=== PATIENT | female | born 1935 | race Caucasian/White ===

== ENCOUNTER 2016-11-05 09:33 | Outpatient (CLI) | payer MEDICARE, MEDICAID | END 2016-11-05 09:34 | disposition home or self-care (01) | DX: M85.88 Other specified disorders of bone density and structure, other site (principal) ==

== ENCOUNTER 2017-06-09 16:23 | Outpatient (CLI) | payer MEDICARE, MEDICAID | END 2017-06-09 16:24 | disposition EMS.NT | LOC: EMS 16:23 | PROVIDERS: ATTEND Surgery | DX: M25.562 Pain in left knee (principal); W18.39XA Other fall on same level, initial encounter; Y92.030 Kitchen in apartment as the place of occurrence of the external cause ==

== ENCOUNTER 2019-11-02 09:56 | Outpatient (CLI) | payer MEDICARE, MEDICAID ==
--- NOTE | 2019-11-02 13:22 | XRAY Report ---
Reason: SHOULDER PAIN Procedure Date: 11/02/2019 Accession Number: [id number] / [id number] Procedure: XRN - Shoulder 3 View LT CPT Code: Final Report FULL RESULT: EXAM: LEFT SHOULDER RADIOGRAPHY EXAM DATE: 11/02/2019 10:56 AM. CLINICAL HISTORY: Shoulder pain. COMPARISON: CHEST 2 VIEW 11/02/2019 10:48 AM. TECHNIQUE: 3 views. FINDINGS: Bones: Normal. No fracture or bone lesion. Joints: The glenohumeral joint is normally located with marked degenerative changes including osteophytosis and loss of joint space. There are soft tissue calcifications in the region of the rotator cuff. The acromioclavicular joint is not well seen. Soft tissues: The visualized hemithorax is unremarkable. No soft tissue swelling. IMPRESSION: Degenerative changes without acute fracture or dislocation, moderate to severe. Calcifications in the region of the rotator cuff, possible calcific tendinitis. RADIA
--- NOTE | 2019-11-02 13:24 | XRAY Report ---
Reason: dyspnea on exertion Procedure Date: 11/02/2019 Accession Number: [id number] / [id number] Procedure: XRN - Chest 2 View X-Ray CPT Code: 03806 Final Report FULL RESULT: EXAM: CHEST RADIOGRAPHY EXAM DATE: 11/02/2019 10:56 AM. CLINICAL HISTORY: Dyspnea on exertion. COMPARISON: RIBS W/PA CHEST LT 03/12/2014 10:02 AM. TECHNIQUE: 2 views. FINDINGS: Examination is underpenetrated, limitation. Lungs/Pleura: No focal opacities evident. No pleural effusion. No pneumothorax. Normal volumes. Mediastinum: Cardiomediastinal contour is not enlarged, redemonstration of calcifications of the aortic arch. Other: None. IMPRESSION: No acute cardiopulmonary abnormality is detected. RADIA
== END 2019-11-02 09:57 | disposition home or self-care (01) ==
LOC: DI.N 09:56
PROVIDERS: ATTEND Family Medicine
DX: M19.012 Primary osteoarthritis, left shoulder (principal); M25.812 Other specified joint disorders, left shoulder; R06.09 Other forms of dyspnea
CPT/HCPCS: 71046

== ENCOUNTER → 2019-11-02 | Outpatient (CLI) | payer MEDICARE, MEDICAID ==
[2019-11-02 12:05] LABS: HGB - HEMOGLOBIN 13.9 g/dL (12.0-16.0); MEAN CORPUSCULAR HEMOGLOBIN 30.5 pg (27.0-31.0); MEAN CORPUSCULAR HGB CONC 33.4 g/dL (32.0-36.0); MEAN CORPUSCULAR VOLUME 91.2 fL (81.0-99.0); MEAN PLATELET VOLUME 10.4 fL (7.9-10.8); RED BLOOD COUNT 4.56 10^6/uL (4.20-5.40); RED CELL DISTRIBUTION WIDTH 12.4 % (12.0-15.0); WHITE BLOOD COUNT 5.6 x10^3/uL (4.8-10.8)
[2019-11-02 12:20] LABS: CALCIUM 8.6 mg/dL (8.5-10.3); CREATININE 0.9 mg/dL (0.4-1.0)
== END ==
LOC: LAB.N 08:00
PROVIDERS: ATTEND Family Medicine
DX: R06.09 Other forms of dyspnea (principal)
CPT/HCPCS: 36415; 80048; 83880; 85027

== ENCOUNTER 2019-11-29 08:54 | Outpatient (CLI) | payer MEDICARE, MEDICAID ==
[2019-11-29] MEDS ORDERED: ALBUTEROL NEB 2.5 MG/3 ML INH SCH (09:30)
== END 2019-11-29 08:55 | disposition home or self-care (01) ==
LOC: RT 08:54
PROVIDERS: ATTEND Family Medicine
DX: J44.9 Chronic obstructive pulmonary disease, unspecified (principal)
CPT/HCPCS: 94060; 94729

== ENCOUNTER 2020-01-01 09:38 | Outpatient (CLI) | payer MEDICARE, MEDICAID | END 2020-01-01 09:39 | disposition home or self-care (01) | LOC: DI 09:38 | PROVIDERS: ATTEND Family Medicine | DX: R06.09 Other forms of dyspnea (principal); I11.9 Hypertensive heart disease without heart failure | CPT/HCPCS: 93306 ==

== ENCOUNTER 2020-01-02 11:44 | Outpatient (CLI) | payer MEDICARE, MEDICAID ==
--- NOTE | 2020-01-02 12:59 | XRAY Report ---
Reason: WRIST JOINT PAIN,LEFT Procedure Date: 01/02/2020 Accession Number: [id number] / [id number] Procedure: XR - Wrist 3 View LT CPT Code: Final Report FULL RESULT: EXAM: LEFT WRIST RADIOGRAPHY EXAM DATE: 01/02/2020 12:02 PM. CLINICAL HISTORY: WRIST JOINT PAIN, LEFT. COMPARISON: None. TECHNIQUE: 3 views. FINDINGS: The bones are osteopenic. No acute fracture or bone lesions. No joint subluxations. Soft Tissues: Mild soft tissue swelling. IMPRESSION: 1. Osteopenia. 2. No acute fracture or dislocation. 3. Mild soft tissue swelling. RADIA
== END 2020-01-02 11:45 | disposition home or self-care (01) ==
LOC: DI 11:44
PROVIDERS: ATTEND Family Medicine
DX: M85.88 Other specified disorders of bone density and structure, other site (principal); M79.89 Other specified soft tissue disorders; M25.532 Pain in left wrist

== ENCOUNTER 2020-03-28 07:00 | Outpatient (CLI) | payer MEDICARE, MEDICAID ==
[2020-03-28 12:53] LABS: CALCIUM 8.6 mg/dL (8.5-10.3); CREATININE 1.2 mg/dL (0.4-1.0)
== END 2020-03-28 23:59 | disposition home or self-care (01) ==
LOC: LAB.WCP 07:00
PROVIDERS: ATTEND Family Medicine
DX: R60.9 Edema, unspecified (principal); R06.09 Other forms of dyspnea
CPT/HCPCS: 36415; 80048; 83880; 85027

== ENCOUNTER 2020-04-01 13:14 | Outpatient (CLI) | payer MEDICARE, MEDICAID ==
[2020-04-01 18:20] LABS: BASOPHILS % (AUTO) 0.6 %; EOSINOPHILS # (AUTO) 0.1 10^3/uL (0.0-0.7); EOSINOPHILS % (AUTO) 1.4 %; HGB - HEMOGLOBIN 14.2 g/dL (12.0-16.0); LYMPHOCYTES # (AUTO) 2.8 10^3/uL (1.5-3.5); MEAN CORPUSCULAR HEMOGLOBIN 31.6 pg (27.0-31.0); MEAN CORPUSCULAR HGB CONC 33.6 g/dL (32.0-36.0); MEAN CORPUSCULAR VOLUME 94.2 fL (81.0-99.0); MONOCYTES # (AUTO) 0.6 10^3/uL (0.0-1.0); MONOCYTES % (AUTO) 9.1 %; NEUTROPHILS % (AUTO) 45.6 %; PLT - PLATELET COUNT 267 10^3/uL (130-450); RED BLOOD COUNT 4.49 10^6/uL (4.20-5.40); RED CELL DISTRIBUTION WIDTH 12.5 % (12.0-15.0); WHITE BLOOD COUNT 6.6 x10^3/uL (4.8-10.8)
== END 2020-04-01 23:59 | disposition home or self-care (01) ==
LOC: LAB.WCP 13:14
PROVIDERS: ATTEND Family Medicine
DX: R60.9 Edema, unspecified (principal); R06.09 Other forms of dyspnea
CPT/HCPCS: 36415; 85025

== ENCOUNTER 2020-05-13 10:27 | Outpatient (CLI) | payer MEDICARE, MEDICAID ==
[2020-05-13 18:41] LABS: BASOPHILS % (AUTO) 0.7 %; EOSINOPHILS # (AUTO) 0.2 10^3/uL (0.0-0.7); EOSINOPHILS % (AUTO) 2.9 %; LYMPHOCYTES # (AUTO) 2.4 10^3/uL (1.5-3.5); LYMPHOCYTES % (AUTO) 41.4 %; MEAN CORPUSCULAR HEMOGLOBIN 31.1 pg (27.0-31.0); MEAN CORPUSCULAR HGB CONC 32.4 g/dL (32.0-36.0); MEAN PLATELET VOLUME 9.7 fL (7.9-10.8); MONOCYTES # (AUTO) 0.5 10^3/uL (0.0-1.0); MONOCYTES % (AUTO) 9.1 %; NEUTROPHILS # (AUTO) 2.7 10^3/uL (1.5-6.6); NEUTROPHILS % (AUTO) 45.6 %; PLT - PLATELET COUNT 243 10^3/uL (130-450); RED CELL DISTRIBUTION WIDTH 12.8 % (12.0-15.0); WHITE BLOOD COUNT 5.8 x10^3/uL (4.8-10.8)
[2020-05-13 18:56] LABS: CALCIUM 9.1 mg/dL (8.5-10.3)
== END 2020-05-13 23:59 | disposition home or self-care (01) ==
LOC: LAB.WCP 10:27
PROVIDERS: ATTEND Family Medicine
DX: R06.09 Other forms of dyspnea (principal)
CPT/HCPCS: 36415; 80048; 83880; 85025

== ENCOUNTER 2020-12-16 08:00 | Outpatient (CLI) | payer MEDICARE, MEDICAID ==
[2020-12-16 12:16] LABS: BASOPHILS % (AUTO) 0.7 %; EOSINOPHILS # (AUTO) 0.2 10^3/uL (0.0-0.7); EOSINOPHILS % (AUTO) 2.6 %; HCT - HEMATOCRIT 44.7 % (37.0-47.0); LYMPHOCYTES # (AUTO) 2.7 10^3/uL (1.5-3.5); LYMPHOCYTES % (AUTO) 44.8 %; MEAN CORPUSCULAR HEMOGLOBIN 31.6 pg (27.0-31.0); MEAN CORPUSCULAR HGB CONC 33.6 g/dL (32.0-36.0); MEAN CORPUSCULAR VOLUME 94.1 fL (81.0-99.0); MEAN PLATELET VOLUME 9.9 fL (7.9-10.8); MONOCYTES # (AUTO) 0.5 10^3/uL (0.0-1.0); MONOCYTES % (AUTO) 8.9 %; NEUTROPHILS # (AUTO) 2.6 10^3/uL (1.5-6.6); NEUTROPHILS % (AUTO) 42.7 %; PLT - PLATELET COUNT 256 10^3/uL (130-450); RED BLOOD COUNT 4.75 10^6/uL (4.20-5.40); WHITE BLOOD COUNT 6.1 x10^3/uL (4.8-10.8)
[2020-12-16 12:35] LABS: ALBUMIN 4.2 g/dL (3.2-5.5); ALBUMIN/GLOBULIN RATIO 1.2 (1.0-2.2); ALKALINE PHOSPHATASE 86 IU/L (42-121); ALT ALANINE AMINOTRANSFERASE 15 IU/L (10-60); AST ASPARTATE AMINOTRANSFERASE 20 IU/L (10-42); BILIRUBIN,TOTAL 0.6 mg/dL (0.2-1.0); BUN - BLOOD UREA NITROGEN 27 mg/dL (6-20); CARBON DIOXIDE - CO2 22 mmol/L (21-32); CHLORIDE 104 mmol/L (101-111); CHOL/HDL RATIO 3.6 (<4.4); CHOLESTEROL 234 mg/dL; CREATININE 1.1 mg/dL (0.4-1.0); GFR - MDRD 47 (>89); GLUCOSE 129 mg/dL (70-100); HDL CHOLESTEROL 65 mg/dL; LDL CHOLESTEROL,CALCULATED 144 mg/dL; LDL/HDL RATIO 2.2 (<4.4); POTASSIUM 4.4 mmol/L (3.5-5.0); SODIUM 135 mmol/L (135-145); TOTAL PROTEIN 7.6 g/dL (6.7-8.2); TRIGLYCERIDES 124 mg/dL; VLDL CHOLESTEROL 25 mg/dL
[2020-12-16 12:38] LABS: THYROID STIMULATING HORMONE 8.54 uIU/mL (0.34-5.60)
[2020-12-16 13:12] LABS: FREE T4 (FREE THYROXINE) 0.83 ng/dL (0.58-1.64)
== END 2020-12-16 23:59 | disposition home or self-care (01) ==
LOC: LAB.WCP 08:00
PROVIDERS: ATTEND Family Medicine
DX: E87.6 Hypokalemia (principal); I10 Essential (primary) hypertension
CPT/HCPCS: 36415; 80053; 80061; 83721; 84439; 84443; 85025

== ENCOUNTER 2021-02-27 13:01 | Outpatient (CLI) | payer MEDICARE, MEDICAID ==
--- NOTE | 2021-02-27 15:40 | XRAY Report ---
PROCEDURE: Knee 4 View BILAT INDICATIONS: BILATERAL KNEE PAIN TECHNIQUE: 4 views of the right and left knee(s) were acquired. COMPARISON: None. FINDINGS: Bones: No fractures or dislocations. There is severe left, and moderate to severe right medial hanna rtment joint space loss. There is near bone on bone in the left knee. Moderate marginal spurs are pre sent, left slightly larger than right. Mild patellofemoral compartment spurs on the left. No suspicio us bony lesions. Decreased mineralization. Soft tissues: No joint effusion. No suspicious soft tissue calcifications. IMPRESSION: Moderately severe, left worse than right, mainly medial compartment osteoarthritic change. No visible fractures or joint effusion. Reviewed by: Susan Car MD on 02/27/2021 3:39 PM PDT Approved by: Susan Car MD on 02/27/2021 3:39 PM PDT Station ID: [id number]
== END 2021-02-27 13:02 | disposition home or self-care (01) ==
LOC: DI.N 13:01
PROVIDERS: ATTEND Family Medicine
DX: M17.0 Bilateral primary osteoarthritis of knee (principal)

== ENCOUNTER 2021-07-06 08:33 | Outpatient (CLI) | payer MEDICARE, MEDICAID | END 2021-07-06 08:34 | disposition EMS.NT | LOC: EMS 08:33 | DX: Z03.89 Encounter for observation for other suspected diseases and conditions ruled out (principal) ==

== ENCOUNTER 2021-09-10 17:17 | Outpatient (CLI) | payer MEDICARE, MEDICAID | END 2021-09-10 17:18 | disposition short-term general hospital (02) | LOC: EMS 17:17 | DX: M54.9 Dorsalgia, unspecified (principal) | CPT/HCPCS: A0425; A0429 ==

== ENCOUNTER 2021-09-23 08:00 | Outpatient (CLI) | payer MEDICARE, MEDICAID ==
[2021-09-23 13:11] LABS: CALCIUM 9.2 mg/dL (8.5-10.3); POTASSIUM 4.3 mmol/L (3.5-5.0)
== END 2021-09-23 23:59 | disposition home or self-care (01) ==
LOC: LAB.WCP 08:00
PROVIDERS: ATTEND Family Medicine
DX: N28.9 Disorder of kidney and ureter, unspecified (principal)
CPT/HCPCS: 36415; 80048

== ENCOUNTER 2021-09-24 08:00 | Outpatient (CLI) | payer MEDICARE, MEDICAID ==
[2021-09-24 18:01] LABS: BASOPHILS % (AUTO) 0.4 %; EOSINOPHILS # (AUTO) 0.1 10^3/uL (0.0-0.7); EOSINOPHILS % (AUTO) 2.6 %; HCT - HEMATOCRIT 39.5 % (37.0-47.0); HGB - HEMOGLOBIN 13.2 g/dL (12.0-16.0); LYMPHOCYTES # (AUTO) 1.9 10^3/uL (1.5-3.5); LYMPHOCYTES % (AUTO) 38.1 %; MEAN CORPUSCULAR HGB CONC 33.4 g/dL (32.0-36.0); MEAN CORPUSCULAR VOLUME 95.6 fL (81.0-99.0); MEAN PLATELET VOLUME 11.2 fL (7.9-10.8); MONOCYTES # (AUTO) 0.5 10^3/uL (0.0-1.0); MONOCYTES % (AUTO) 9.3 %; NEUTROPHILS # (AUTO) 2.5 10^3/uL (1.5-6.6); NEUTROPHILS % (AUTO) 49.4 %; PLT - PLATELET COUNT 226 10^3/uL (130-450); RED BLOOD COUNT 4.13 10^6/uL (4.20-5.40); RED CELL DISTRIBUTION WIDTH 13.8 % (12.0-15.0); WHITE BLOOD COUNT 5.1 x10^3/uL (4.8-10.8)
[2021-09-24 18:18] LABS: ALBUMIN 4.5 g/dL (3.2-5.5); ALBUMIN/GLOBULIN RATIO 1.5 (1.0-2.2); ALKALINE PHOSPHATASE 77 IU/L (42-121); ALT ALANINE AMINOTRANSFERASE 10 IU/L (10-60); AST ASPARTATE AMINOTRANSFERASE 16 IU/L (10-42); BUN - BLOOD UREA NITROGEN 23 mg/dL (6-20); CALCIUM 9.4 mg/dL (8.5-10.3); CARBON DIOXIDE - CO2 25 mmol/L (21-32); CHLORIDE 100 mmol/L (101-111); CHOL/HDL RATIO 3.2 (<4.4); CHOLESTEROL 180 mg/dL; GFR - MDRD 53 (>89); GLUCOSE 113 mg/dL (70-100); HDL CHOLESTEROL 56 mg/dL; LDL CHOLESTEROL,CALCULATED 102 mg/dL; LDL/HDL RATIO 1.8 (<4.4); POTASSIUM 3.8 mmol/L (3.5-5.0); SODIUM 135 mmol/L (135-145); TOTAL PROTEIN 7.5 g/dL (6.7-8.2); TRIGLYCERIDES 111 mg/dL; VLDL CHOLESTEROL 22 mg/dL
[2021-09-24 18:30] LABS: THYROID STIMULATING HORMONE 3.71 uIU/mL (0.34-5.60)
[2021-09-24 18:32] LABS: FREE T3 2.8 pg/mL (2.5-3.9); FREE T4 (FREE THYROXINE) 0.93 ng/dL (0.58-1.64)
== END 2021-09-24 23:59 | disposition home or self-care (01) ==
LOC: LAB.WCP 08:00
PROVIDERS: ATTEND Family Medicine
DX: E66.01 Morbid (severe) obesity due to excess calories (principal); R63.4 Abnormal weight loss; E87.6 Hypokalemia; J44.9 Chronic obstructive pulmonary disease, unspecified; I10 Essential (primary) hypertension
CPT/HCPCS: 36415; 80053; 80061; 83721; 84439; 84443; 84481; 85025

== ENCOUNTER 2021-10-30 10:35 | Outpatient (CLI) | payer MEDICARE, MEDICAID ==
--- NOTE | 2021-10-30 17:15 | DEXA Report ---
PROCEDURE: Dexa Spine and/or Hip INDICATIONS: OSTEOPENIA TECHNIQUE: Dual energy x-ray absorptiometry (DXA) was performed on a [employer] System. Regions measur ed are the AP Spine, femoral neck, and if needed forearm. COMPARISON: DEXA, 11/05/2016.. FINDINGS: Lumbar Spine: Bone Mineral Density 1.023 g/cm/cm,T score -1.3 Left Hip: Bone Mineral Density 0.721 g/cm/cm,T score -2.3 Left Femoral Neck: Bone Mineral Density 0.840 g/cm/cm, T score -1.4 (T score greater or equal to -1.0: NORMAL) (T score from -1.1 to -2.4: OSTEOPENIA) (T score less than or equal to -2.5 to: OSTEOPOROSIS) Impression: Based on WHO criteria, the patient is osteopenic. Compared to the last exam on 11/05/2016 , there is significant decrease in the patient's bone mineral density in spine and left hip. Patients with diagnosis of osteoporosis or osteopenia should have regular bone mineral density assess ment. For those eligible for Medicare, routine testing is allowed once every 2 years. Testing frequ ency can be increased for patients who have rapidly progressing disease or for those who are receivin g medical therapy to restore bone mass. Reviewed by: Alexy Fowler MD on 10/30/2021 5:13 PM PST Approved by: Alexy Fowler MD on 10/30/2021 5:13 PM PST Station ID: [id number]
== END 2021-10-30 10:36 | disposition home or self-care (01) ==
LOC: DI 10:35
PROVIDERS: ATTEND Family Medicine
DX: M85.89 Other specified disorders of bone density and structure, multiple sites (principal)

== ENCOUNTER 2021-12-02 10:54 | Outpatient (CLI) | payer MEDICARE, MEDICAID ==
[2021-12-02] MEDS ORDERED: IOPAMIDOL-300 50 ML VIAL ONE (11:20)
[2021-12-02] MEDS ORDERED: IOVERSOL 320 100 ML VIAL IVP ONE ×2 (11:20→13:20)
[2021-12-02] MEDS ORDERED: IOPAMIDOL-300 50 ML VIAL PO ONE (13:19)
--- NOTE | 2021-12-02 17:24 | CT Report ---
PROCEDURE: Abdomen/Pelvis W INDICATIONS: ABDOMINAL PAIN, UNINTENTIONAL WEIGHT LOSS CONTRAST: IV CONTRAST: Optiray 320 ml: 100 PO CONTRAST: Isovue 300 ml50 TECHNIQUE: After the administration of oral and intravenous contrast, 5 mm thick sections acquired from the diap hragms to the symphysis. 5 mm thick coronal and sagittal reformats were acquired. For radiation dos e reduction, the following was used: automated exposure control, adjustment of mA and/or kV accordin g to patient size. COMPARISON: CT abdomen pelvis 05/23/2013. FINDINGS: Image quality: There is metallic streak artifact from patient's right hip prosthesis limiting evaluat ion. ABDOMEN: Lung bases: There is linear atelectasis and scarring the lung bases. Heart size is at the upper limit s of normal. There is a small hiatal hernia. Solid organs: Evaluation of the liver demonstrates no focal hepatic lesions. Gallbladder appears wit hin normal limits without calcified gallstones. Biliary system is non dilated. The spleen is normal in size. Pancreas enhances normally without peripancreatic fat stranding or fluid collections. No ad renal nodules. Kidneys demonstrate no hydronephrosis. Peritoneum and bowel: Bowel loops demonstrate normal wall thickness and caliber. No free fluid or a ir. Nodes and vessels: No retroperitoneal or mesenteric adenopathy by size criteria. Aorta and inferior vena cava are normal in size. Miscellaneous: No ventral hernias. PELVIS: Genitourinary: Bladder wall thickness is normal. Miscellaneous: No inguinal hernias or adenopathy. Bones: No suspicious bony lesions. Visualized osseous structures appear osteopenic. Multiple compre ssion fractures are demonstrated throughout the visualized lower thoracic and lumbar spine. These inc lude moderate superior endplate compression fracture of the T10 vertebral body with approximately 40% loss of height and a moderate to severe inferior endplate compression fracture of the L5 vertebral b blossom with up to approximately 60% loss of height centrally which are new compared to the prior study b ut of indeterminate acuity. No definite retropulsed fragments in the spinal canal. Compression deform ities within the T12, L1, L2, and L4 vertebral bodies appear similar to the prior study. There is als o an incompletely visualized compression deformity along the superior endplate of T9 which is new fro m the prior study. There is likely moderate to severe spinal canal narrowing at L1-L2 and L2-L3 which appear similar to the prior study. IMPRESSION: 1. No acute intra-abdominal abnormality. 2. No definite evidence of malignancy in the abdomen and pelvis with evaluation limited in the pelvis due to streak artifact. 3. Multiple compression fractures within the lower thoracic and lumbar spine including T9, T10 and L5 compression fractures which are new compared to the prior study from 2012 but of indeterminate acuit y. No definite retropulsed fragments in the spinal canal. Reviewed by: Raphael Miranda MD on 12/02/2021 5:23 PM PST Approved by: Raphael Miranda MD on 12/02/2021 5:23 PM PST Station ID: [id number]
== END 2021-12-02 10:55 | disposition home or self-care (01) ==
LOC: LAB 10:54
PROVIDERS: ATTEND Family Medicine
DX: R10.9 Unspecified abdominal pain (principal); R63.4 Abnormal weight loss; M48.54XA Collapsed vertebra, not elsewhere classified, thoracic region, initial encounter for fracture; M48.56XA Collapsed vertebra, not elsewhere classified, lumbar region, initial encounter for fracture
CPT/HCPCS: 36415; 74177; 82565; Q9967

== ENCOUNTER 2021-12-18 10:07 | Outpatient (CLI) | payer MEDICARE, MEDICAID ==
[2021-12-18 12:01] LABS: BASOPHILS % (AUTO) 0.6 %; EOSINOPHILS # (AUTO) 0.1 10^3/uL (0.0-0.7); HCT - HEMATOCRIT 39.2 % (37.0-47.0); HGB - HEMOGLOBIN 13.4 g/dL (12.0-16.0); LYMPHOCYTES # (AUTO) 2.4 10^3/uL (1.5-3.5); LYMPHOCYTES % (AUTO) 43.1 %; MEAN CORPUSCULAR HEMOGLOBIN 32.6 pg (27.0-31.0); MEAN CORPUSCULAR HGB CONC 34.2 g/dL (32.0-36.0); MEAN CORPUSCULAR VOLUME 95.4 fL (81.0-99.0); MEAN PLATELET VOLUME 10.3 fL (7.9-10.8); MONOCYTES # (AUTO) 0.4 10^3/uL (0.0-1.0); MONOCYTES % (AUTO) 7.9 %; NEUTROPHILS # (AUTO) 2.5 10^3/uL (1.5-6.6); NEUTROPHILS % (AUTO) 46.2 %; PLT - PLATELET COUNT 215 10^3/uL (130-450); RED BLOOD COUNT 4.11 10^6/uL (4.20-5.40); RED CELL DISTRIBUTION WIDTH 12.6 % (12.0-15.0); WHITE BLOOD COUNT 5.5 x10^3/uL (4.8-10.8)
[2021-12-18 12:19] LABS: CALCIUM 9.1 mg/dL (8.5-10.3); POTASSIUM 3.9 mmol/L (3.5-5.0)
[2021-12-18 12:41] LABS: ESTIMATED AVERAGE GLUCOSE 123 mg/dL (70-100); HEMOGLOBIN A1c% 5.9 % (4.27-6.07)
== END 2021-12-18 10:08 | disposition home or self-care (01) ==
LOC: LAB.N 10:07
PROVIDERS: ATTEND Orthopaedic Surgery
DX: Z01.812 Encounter for preprocedural laboratory examination (principal); R73.9 Hyperglycemia, unspecified; N39.0 Urinary tract infection, site not specified
CPT/HCPCS: 36415; 80048; 81001; 82043; 82570; 83036; 85025; 87086

== ENCOUNTER 2021-12-18 10:11 | Outpatient (CLI) | payer MEDICARE, MEDICAID ==
--- NOTE | 2021-12-18 11:32 | XRAY Report ---
PROCEDURE: Chest 2 View X-Ray INDICATIONS: WEIGHT LOSS ABNORMAL TECHNIQUE: 2 view(s) of the chest. COMPARISON: November 02, 2019 FINDINGS: SUPPORT DEVICES: None. LUNGS/PLEURA: No focal consolidation, pleural effusion or space-occupying pneumothorax. MEDIASTINUM: The cardiomediastinal silhouette is within normal limits. BONES/SOFT TISSUES: No acute abnormality. IMPRESSION: 1.No acute cardiopulmonary abnormality. Reviewed by: Thierry Chatman MD on 12/18/2021 11:31 AM PDT Approved by: Thierry Chatman MD on 12/18/2021 11:31 AM PDT Station ID: [id number]
== END 2021-12-18 10:12 | disposition home or self-care (01) ==
LOC: DI.N 10:11
PROVIDERS: ATTEND Family Medicine
DX: R63.4 Abnormal weight loss (principal); Z01.812 Encounter for preprocedural laboratory examination; R73.9 Hyperglycemia, unspecified; N39.0 Urinary tract infection, site not specified
CPT/HCPCS: 36415; 80048; 81001; 82043; 82570; 83036; 85025; 87086

== ENCOUNTER 2021-12-21 08:00 | Outpatient (CLI) | payer MEDICARE, MEDICAID ==
[2021-12-21 11:44] LABS: BILIRUBIN,URINE NEGATIVE (NEGATIVE); GLUCOSE, URINE (UA) NEGATIVE (NEGATIVE); KETONES,URINE (UA) NEGATIVE (NEGATIVE); LEUKOCYTE ESTERASE, URINE NEGATIVE (NEGATIVE); NITRITE,URINE NEGATIVE (NEGATIVE); OCCULT BLOOD,URINE NEGATIVE (NEGATIVE); PROTEIN,URINE NEGATIVE (NEGATIVE); UROBILINOGEN,URINE 0.2 (NORMAL) E.U./dL (NORMAL)
[2021-12-21 11:55] LABS: CLARITY,URINE CLEAR (CLEAR)
== END 2021-12-21 23:59 ==
LOC: LAB.N 08:00
DX: Z01.812 Encounter for preprocedural laboratory examination (principal); N39.0 Urinary tract infection, site not specified
CPT/HCPCS: 81001; 81003; 87086

== ENCOUNTER 2022-10-13 08:00 | Outpatient (CLI) | payer MEDICARE, MEDICAID ==
[2022-10-13 18:13] LABS: CREATININE 1.1 mg/dL (0.4-1.0); POTASSIUM 4.3 mmol/L (3.5-5.0)
== END 2022-10-13 23:59 | disposition home or self-care (01) ==
LOC: LAB.N 08:00
PROVIDERS: ATTEND Physician Assistant Medical
DX: R60.9 Edema, unspecified (principal)
CPT/HCPCS: 36415; 80048

== ENCOUNTER 2023-01-05 11:25 | Outpatient (CLI) | payer MEDICARE, MEDICAID ==
[2023-01-05 17:48] LABS: BASOPHILS % (AUTO) 0.7 %; EOSINOPHILS # (AUTO) 0.2 10^3/uL (0.0-0.7); EOSINOPHILS % (AUTO) 3.3 %; HCT - HEMATOCRIT 38.7 % (37.0-47.0); HGB - HEMOGLOBIN 12.7 g/dL (12.0-16.0); LYMPHOCYTES % (AUTO) 43.2 %; MEAN CORPUSCULAR HEMOGLOBIN 32.4 pg (27.0-31.0); MEAN CORPUSCULAR HGB CONC 32.8 g/dL (32.0-36.0); MEAN CORPUSCULAR VOLUME 98.7 fL (81.0-99.0); MEAN PLATELET VOLUME 10.5 fL (7.9-10.8); MONOCYTES # (AUTO) 0.4 10^3/uL (0.0-1.0); MONOCYTES % (AUTO) 9.2 %; NEUTROPHILS % (AUTO) 43.4 %; PLT - PLATELET COUNT 199 10^3/uL (130-450); RED BLOOD COUNT 3.92 10^6/uL (4.20-5.40); WHITE BLOOD COUNT 4.6 x10^3/uL (4.8-10.8)
[2023-01-05 18:08] LABS: ALBUMIN 4.1 g/dL (3.2-5.5); ALBUMIN/GLOBULIN RATIO 1.4 (1.0-2.2); ALKALINE PHOSPHATASE 60 IU/L (42-121); ALT ALANINE AMINOTRANSFERASE 14 IU/L (10-60); AST ASPARTATE AMINOTRANSFERASE 18 IU/L (10-42); BILIRUBIN,TOTAL 0.6 mg/dL (0.2-1.0); BUN - BLOOD UREA NITROGEN 47 mg/dL (6-20); CALCIUM 8.9 mg/dL (8.5-10.3); CARBON DIOXIDE - CO2 25 mmol/L (21-32); CHLORIDE 106 mmol/L (101-111); CHOL/HDL RATIO 2.4 (<4.4); CHOLESTEROL 207 mg/dL; CREATININE 1.4 mg/dL (0.4-1.0); GFR - MDRD 36 (>89); GLUCOSE 90 mg/dL (70-100); HDL CHOLESTEROL 85 mg/dL; LDL CHOLESTEROL,CALCULATED 103 mg/dL; LDL/HDL RATIO 1.2 (<4.4); POTASSIUM 4.7 mmol/L (3.5-5.0); SODIUM 137 mmol/L (135-145); TRIGLYCERIDES 97 mg/dL; VLDL CHOLESTEROL 19 mg/dL
[2023-01-05 18:45] LABS: THYROID STIMULATING HORMONE 5.22 uIU/mL (0.34-5.60)
== END 2023-01-05 11:26 | disposition home or self-care (01) ==
LOC: LAB.N 11:25
PROVIDERS: ATTEND Physician Assistant
DX: I10 Essential (primary) hypertension (principal); Z13.220 Encounter for screening for lipoid disorders
CPT/HCPCS: 36415; 80053; 80061; 83721; 84443; 85025

== ENCOUNTER 2023-04-19 23:00 | Outpatient (CLI) | payer MEDICARE, MEDICAID | END 2023-04-19 23:59 | disposition critical access hospital (66) | LOC: EMS 23:00 | DX: M54.50 Low back pain, unspecified (principal); R25.2 Cramp and spasm; Z74.09 Other reduced mobility | CPT/HCPCS: A0425; A0429 ==

== ENCOUNTER 2023-05-18 08:58 | Outpatient (CLI) | payer MEDICARE, MEDICAID ==
[2023-05-18 09:04] LABS: BASOPHILS % (AUTO) 0.7 %; EOSINOPHILS # (AUTO) 0.2 10^3/uL (0.0-0.7); EOSINOPHILS % (AUTO) 4.6 %; HCT - HEMATOCRIT 35.5 % (37.0-47.0); HGB - HEMOGLOBIN 11.8 g/dL (12.0-16.0); LYMPHOCYTES # (AUTO) 1.9 10^3/uL (1.5-3.5); LYMPHOCYTES % (AUTO) 45.4 %; MEAN CORPUSCULAR HEMOGLOBIN 31.5 pg (27.0-31.0); MEAN CORPUSCULAR HGB CONC 33.2 g/dL (32.0-36.0); MEAN CORPUSCULAR VOLUME 94.7 fL (81.0-99.0); MEAN PLATELET VOLUME 10.3 fL (7.9-10.8); MONOCYTES # (AUTO) 0.3 10^3/uL (0.0-1.0); NEUTROPHILS # (AUTO) 1.7 10^3/uL (1.5-6.6); NEUTROPHILS % (AUTO) 41.1 %; PLT - PLATELET COUNT 173 10^3/uL (130-450); RED BLOOD COUNT 3.75 10^6/uL (4.20-5.40); RED CELL DISTRIBUTION WIDTH 12.7 % (12.0-15.0); WHITE BLOOD COUNT 4.1 x10^3/uL (4.8-10.8)
[2023-05-18 09:17] LABS: CALCIUM 9.1 mg/dL (8.5-10.3); CREATININE 1.2 mg/dL (0.6-1.3); POTASSIUM 4.2 mmol/L (3.5-4.5)
== END 2023-05-18 08:59 | disposition home or self-care (01) ==
LOC: LAB 08:58
PROVIDERS: ATTEND Registered Nurse
DX: I10 Essential (primary) hypertension (principal); E87.6 Hypokalemia; J44.9 Chronic obstructive pulmonary disease, unspecified
CPT/HCPCS: 36415; 80048; 85025

== ENCOUNTER 2023-06-01 05:38 | Outpatient (CLI) | payer MEDICARE, MEDICAID | END 2023-06-01 23:59 | disposition EMS.NT | LOC: EMS 05:38 | DX: Z03.89 Encounter for observation for other suspected diseases and conditions ruled out (principal) ==

== ENCOUNTER 2023-08-20 19:24 | Outpatient (CLI) | payer MEDICARE, MEDICAID | END 2023-08-20 19:25 | disposition critical access hospital (66) | LOC: EMS 19:24 | DX: M54.40 Lumbago with sciatica, unspecified side (principal) | CPT/HCPCS: A0425; A0429 ==

== ENCOUNTER 2023-08-20 19:46 | Emergency (ER) | payer MEDICARE, MEDICAID ==
[2023-08-20 19:59] VITALS: BP 118/104; O2SAT 94
[2023-08-20] MEDS ORDERED: MORPHINE 2 MG/ML CARPUJECT IVP STA (19:59)
[2023-08-20] MEDS ORDERED: LIDOCAINE PATCH 5% TOP STA (19:59)
[2023-08-20] MEDS ORDERED: DEXAMETHASONE 10 MG/ML VIAL IVP STA (19:59)
[2023-08-20] MEDS ORDERED: methocarbamoL 500 MG TABLET PO STA (19:59)
[2023-08-20] MEDS ORDERED: KETOROLAC 15 MG/ML VIAL IVP STA (19:59)
--- NOTE | 2023-08-20 20:00 | ED Physician Documentation ---
PD HPI BACK PAIN - Stated complaint Stated Complaint: BACK PX - Chief complaint Chief Complaint: Back Pain - History obtained from History obtained from: Patient, EMS - Additional information Additional information: 88-year-old female with history of chronic lumbar back pain presents by EMS from home for lumbar back pain. Pain is diffuse across her lower back and similar to her typical pain, only more intense than normal. Patient states that her usual oxycodone is no longer working and her pain is making it difficult for her to function around the house. Denies bowel or bladder incontinence, denies saddle anesthesia. Denies numbness, weakness of her lower extremities. Review of Systems Constitutional: denies: Fever, Chills Cardiac: denies: Chest pain / pressure, Palpitations, Calf pain Respiratory: denies: Dyspnea, Cough, Wheezing GI: denies: Abdominal Pain, Nausea, Vomiting Musculoskeletal: reports: Back pain. 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 TECHNICIAN: Hysterectomy HEENT: Cataracts - Present Medications Home Medications: Ambulatory Orders Medication Instructions Recorded Confirmed Furosemide [Lasix] 40 mg PO DAILY 06/15/13 08/20/23 HYDROcod/ACETAM 5/325 [Vicodin 1 each PO 3-4XD PRN 06/15/13 08/20/23 5/325] Levothyroxine [Synthroid] 50 mcg PO QDAC 06/15/13 08/20/23 Meloxicam 7.5 mg PO DAILY PRN 06/15/13 08/20/23 Calcitonin [Fortical] 1 sprays BRIE DAILY 01/29/14 08/20/23 Diazepam 2 mg PO TID PRN 01/29/14 08/20/23 Potassium Chloride [Klor-Con] 40 meq PO BID 01/29/14 08/20/23 Pregabalin [Lyrica] 75 mg PO DAILY 12/25/15 08/20/23 hydroCHLOROthiazide [Hydrodiuril] 50 mg PO DAILY #40 tablet 12/25/15 08/20/23 - Allergies Allergies/Adverse Reactions: Allergies Allergy/AdvReac Type Severity Reaction Status Date / Time gabapentin Allergy Intermediate [place] like Verified 08/20/23 20:55 she was dying. losartan Allergy Unknown Verified 08/20/23 20:55 morphine AdvReac Mild Anaphylaxis Verified 08/20/23 20:55 - Social History Does the pt smoke?: Yes Smoking Status: Current every day smoker Does the pt drink ETOH?: Yes Does the pt have substance abuse?: No - Immunizations Immunizations are current?: Yes - POLST Patient has POLST: Yes POLST Status: Full Code PD ED PE NORMAL - Vitals Vital signs reviewed: Yes - General General: Alert and oriented X 3, No acute distress, Well developed/nourished - Cardiac Cardiac: RRR, Strong equal pulses - Respiratory Respiratory: No respiratory distress - Abdomen Abdomen: Soft, Non tender, Non distended - Back Back: Other (no midline pain) - Derm Derm: Normal color, Warm and dry, No rash - Extremities Extremities: No deformity, No tenderness to palpate, Normal ROM s pain, No edema, Other (full ROM, no numbness) - Neuro Neuro: Alert and oriented X 3, compliance paralegal 2-12 intact, No motor deficit, Normal speech Results - Vitals Vitals: Vital Signs - 24 hr 08/20/23 19:53 Temperature 36.8 C Heart Rate 69 Respiratory 19 Rate Blood Pressure 118/104 H O2 Saturation 94 Oxygen O2 Source Room air PD Medical Decision Making - ED course Complexity details: reviewed results, re-evaluated patient, considered differential, d/w patient ED course: Nontoxic appearing patient with worsening of her chronic lumbar back pain. No signs or symptoms of cauda equina, no trauma to suggest indication for advanced imaging at this time. Patient's primary concern is pain control. Patient was given numerous medications for pain including a single dose of IV morphine. She states that her pain was significantly improved after this and she was able to ambulate in the hallways with her walker from home. Patient states she is plenty of pain medications at home. Discharged with instructions to follow-up with PCP within the week. Departure - Departure Disposition: 01 Home, Self Care Clinical Impression: Back pain Qualifiers: Back pain location: low back pain Chronicity: chronic Back pain laterality: bilateral Sciatica presence: without sciatica Qualified Code(s): M54.50 - Low back pain, unspecified Condition: Stable Instructions: ED Neck Back Pain General Comments: Follow-up with your primary care doctor as soon as possible next week Discharge Date/Time: 08/20/23 23:02
== END 2023-08-20 23:02 | disposition home or self-care (01) ==
LOC: EDUNIT# → ED 19:46
DX: M54.50 Low back pain, unspecified (principal); G89.29 Other chronic pain; F17.200 Nicotine dependence, unspecified, uncomplicated
CPT/HCPCS: 96374; 99283; A9270

== ENCOUNTER 2024-01-11 16:32 | Outpatient (CLI) | payer MEDICARE, MEDICAID | END 2024-01-11 23:59 | disposition critical access hospital (66) | LOC: EMS 16:32 | DX: S01.81XA Laceration without foreign body of other part of head, initial encounter (principal); W01.198A Fall on same level from slipping, tripping and stumbling with subsequent striking against other object, initial encounter; Y93.01 Activity, walking, marching and hiking; Y92.009 Unspecified place in unspecified non-institutional (private) residence as the place of occurrence of the external cause | CPT/HCPCS: A0425; A0429 ==

== ENCOUNTER 2024-01-11 16:58 | Emergency (ER) | payer MEDICARE, MEDICAID ==
--- NOTE | 2024-01-11 17:04 | ED Physician Documentation ---
PD HPI HEAD INJURY - Stated complaint Stated Complaint: GLF/HEAD LAC - History obtained from History obtained from: Patient, EMS - Additional information Additional information: She had a mechanical trip and fall just prior to arrival and is brought in by ambulance. She hit her head on the door on the way down has a laceration on the left side. Has a mild headache with this. Not anticoagulated. No loss of consciousness. No other injuries. 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 losartan Allergy Unknown Verified 01/11/24 17:43 morphine AdvReac Mild Anaphylaxis Verified 01/11/24 17:43 - Social History Does the pt smoke?: Yes Smoking Status: Current every day smoker Does the pt drink ETOH?: Yes Does the pt have substance abuse?: No - Immunizations Immunizations are current?: Yes - POLST Patient has POLST: Yes POLST Status: Full Code PD ED PE NORMAL - Vitals Vital signs reviewed: Yes - General General: Alert and oriented X 3, No acute distress - HEENT HEENT: PERRL, EOMI, Other (There is a laceration over the left worship, difficult to see specifically on initial evaluation because of overlying blood and clot but not actively significantly bleeding.) - Neck Neck: Supple, no meningeal sign, No bony TTP - Neuro Neuro: Alert and oriented X 3, Normal speech Eye Opening: Spontaneous Motor: Obeys Commands Verbal: Oriented GCS Score: 15 Results - Vitals Vitals: Vital Signs - 24 hr 04/10/24 17:04 Temperature 36.5 C Heart Rate 70 Respiratory 20 Rate Blood Pressure 167/92 H O2 Saturation 99 Oxygen O2 Source Room air - Rads (name of study) CT of the head and cervical spine without fracture or intracranial injury. She does have incidental degenerative changes and cerebral atrophy. Relevant Findings:: Final report received, EMP independent interpretation of test Procedures - Laceration (location) L worship/scalp Length in cm: 3 Wound type: Curved, Into subcut fat Anesthesia: Lidocaine 1%, With bicarb Wound preparation: Irrigated copiously NS Skin layer closure: Kacie (8) Other: Patient tolerated well, No complications, Neurovascular intact, Tetanus UTD Departure - Departure Disposition: 01 Home, Self Care Clinical Impression: Injury of head and neck Qualifiers: Encounter type: initial encounter Qualified Code(s): S09.90XA - Unspecified injury of head, initial encounter; S19.9XXA - Unspecified injury of neck, initial encounter Scalp laceration Qualifiers: Encounter type: initial encounter Qualified Code(s): S01.01XA - Laceration without foreign body of scalp, initial encounter Condition: Good Record reviewed to determine appropriate education?: Yes Instructions: ED Head Injury Closed, ED Laceration Scalp Stitch Or Stap Comments: Follow-up with your doctor in 7 to 10 days for staple removal. Between now and then you can wash as you would routinely with shampoo and water in the shower. Just blot the area over the kacie dry and try to be careful if you are brushing your hair not to catch on the kacie. Return for new or worsening symptoms.
[2024-01-11] MEDS: BUFFERED LIDOCAINE 10 ML SYRINGE SUBQ STA (17:10)
--- NOTE | 2024-01-11 17:52 | CT Report ---
PROCEDURE: Head WO INDICATIONS: head injury TECHNIQUE: Noncontrast 4.5 mm thick angled axial sections acquired from the foramen magnum to the vertex. For r adiation dose reduction, the following was used: automated exposure control, adjustment of mA and/or kV according to patient size. COMPARISON: CT cervical spine 01/11/2024 FINDINGS: Image quality: Excellent. The ventricular system and cortical sulci demonstrate atrophy, consistent for patient's stated age. There are areas of hypodensity in the periventricular and subcortical whi te matter. There is no acute intra or extra-axial fluid collection. No acute hemorrhage, mass lesio n or midline shift. Brainstem is unremarkable. Globes are symmetrical. Sinuses are aerated. Osseous structures are intact. Left frontal scalp hemato ma. IMPRESSION: 1. No acute intracranial process. Left frontal scalp hematoma. 2. Moderate atrophy and chronic microvascular ischemic changes. Reviewed by: Jaylyn Samson MD on 01/11/2024 5:50 PM PDT Approved by: Jaylyn Samson MD on 01/11/2024 5:50 PM PDT Station ID: [id number]
--- NOTE | 2024-01-11 17:54 | CT Report ---
PROCEDURE: Cervical Spine WO INDICATIONS: head injury TECHNIQUE: Noncontrast 3 mm thick sections acquired from the skull base to the T4 level. Sagittal and coronal r eformats were then constructed. For radiation dose reduction, the following was used: automated exp osure control, adjustment of mA and/or kV according to patient size. COMPARISON: CT head 01/11/2024 FINDINGS: Image quality: Excellent. Bones: No fractures or dislocations. Visualized superior ribs are intact. There is trace anterolis thesis of C3 on C4 trace retrolisthesis of C4 on C5. Multilevel degenerative disc space narrowing mos t severe at C4-5 and to a lesser degree C5-6, C6-7. Multilevel uncovertebral arthropathy is present. Multilevel disc bulges, spinal stenosis and foraminal narrowing. Soft tissues: Prevertebral soft tissues are normal in thickness. No paravertebral hematomas. No ap ical pneumothoraces. IMPRESSION: Multilevel degenerative changes without visualized fracture. Reviewed by: Jaylyn Samson MD on 01/11/2024 5:52 PM PDT Approved by: Jaylyn Samson MD on 01/11/2024 5:52 PM PDT Station ID: [id number]
[2024-01-11 19:30] VITALS: BP 152/85; O2SAT 100
== END 2024-01-11 19:10 | disposition home or self-care (01) ==
LOC: EDUNIT# → ED 16:58
DX: S09.90XA Unspecified injury of head, initial encounter (principal); S01.01XA Laceration without foreign body of scalp, initial encounter; W01.0XXA Fall on same level from slipping, tripping and stumbling without subsequent striking against object, initial encounter; I10 Essential (primary) hypertension; E03.9 Hypothyroidism, unspecified; F17.200 Nicotine dependence, unspecified, uncomplicated; Z79.899 Other long term (current) drug therapy
CPT/HCPCS: 12002; 99284

== ENCOUNTER 2024-03-05 02:54 | Outpatient (CLI) | payer MEDICARE, MEDICAID | END 2024-03-05 23:59 | disposition EMS.NT | LOC: EMS 02:54 | DX: R53.1 Weakness (principal) ==

== ENCOUNTER 2024-03-29 07:23 | Outpatient (CLI) | payer MEDICARE, MEDICAID | END 2024-03-29 23:59 | disposition EMS.NT | LOC: EMS 07:23 | DX: Z03.89 Encounter for observation for other suspected diseases and conditions ruled out (principal) ==

== ENCOUNTER 2024-04-21 05:20 | Outpatient (CLI) | payer MEDICARE, MEDICAID | END 2024-04-21 23:59 | disposition EMS.NT | LOC: EMS 05:20 | DX: Z03.89 Encounter for observation for other suspected diseases and conditions ruled out (principal) ==

== ENCOUNTER 2024-04-22 03:09 | Outpatient (CLI) | payer MEDICARE, MEDICAID | END 2024-04-22 23:59 | disposition critical access hospital (66) | LOC: EMS 03:09 | DX: M54.50 Low back pain, unspecified (principal); M79.605 Pain in left leg; M79.604 Pain in right leg | CPT/HCPCS: A0425; A0427 ==

== ENCOUNTER 2024-05-06 08:14 | Outpatient (CLI) | payer MEDICARE, MEDICAID | END 2024-05-06 23:59 | disposition critical access hospital (66) | LOC: EMS 08:14 | DX: R07.9 Chest pain, unspecified (principal); M25.512 Pain in left shoulder; M54.6 Pain in thoracic spine | CPT/HCPCS: A0425; A0427 ==

== ENCOUNTER 2024-05-06 08:19 | Emergency (ER) | payer MEDICARE, MEDICAID ==
[2024-05-06 08:45] LABS: BASOPHILS % (AUTO) 0.6 %; EOSINOPHILS # (AUTO) 0.3 10^3/uL (0.0-0.7); HCT - HEMATOCRIT 39.8 % (37.0-47.0); LYMPHOCYTES # (AUTO) 1.7 10^3/uL (1.5-3.5); LYMPHOCYTES % (AUTO) 31.7 %; MEAN CORPUSCULAR HEMOGLOBIN 30.3 pg (27.0-31.0); MEAN CORPUSCULAR HGB CONC 32.7 g/dL (32.0-36.0); MEAN CORPUSCULAR VOLUME 92.8 fL (81.0-99.0); MEAN PLATELET VOLUME 9.7 fL (7.9-10.8); MONOCYTES # (AUTO) 0.5 10^3/uL (0.0-1.0); MONOCYTES % (AUTO) 9.8 %; NEUTROPHILS # (AUTO) 2.9 10^3/uL (1.5-6.6); NEUTROPHILS % (AUTO) 52.5 %; PLT - PLATELET COUNT 300 10^3/uL (130-450); RED BLOOD COUNT 4.29 10^6/uL (4.20-5.40); RED CELL DISTRIBUTION WIDTH 12.4 % (12.0-15.0); WHITE BLOOD COUNT 5.4 x10^3/uL (4.8-10.8)
[2024-05-06 09:03] LABS: ALBUMIN 3.8 g/dL (3.2-5.5); ALBUMIN/GLOBULIN RATIO 1.7 (1.0-2.2); BILIRUBIN,TOTAL 0.5 mg/dL (0.2-1.0); CALCIUM 9.4 mg/dL (8.5-10.3); CREATININE 1.5 mg/dL (0.6-1.3); POTASSIUM 4.1 mmol/L (3.5-4.5); TOTAL PROTEIN 6.1 g/dL (6.4-8.9)
[2024-05-06 09:05] LABS: TROPONIN I HIGH SENSITIVITY 9.8 ng/L (2.3-14.8)
[2024-05-06] MEDS: HYDROmorphone 1 MG/ML CARPUJECT IM STA (09:12)
--- NOTE | 2024-05-06 09:19 | ED Physician Documentation ---
History of Present Illness - Stated complaint Stated Complaint: LT SHOULDER/CHEST PX - Chief complaint Chief Complaint: Ext Problem - History obtained from History obtained from: Patient - Additonal information Additional information: The patient comes to the emergency department via EMS for chief complaint of left shoulder pain has been going on for several days, she reports. She denies any distinct injury. She has had pain in the shoulder previously and is not sure what caused it to flareup this time. Medics report that the pain has been reproducible with palpation and with movement of the shoulder. The patient has a history of hypertension but no cardiac problems that she knows of. No diabetes. The patient denies any shortness of breath or nausea. No other complaints at this time. PD PAST MEDICAL HISTORY - Past Medical History Past Medical History: Yes Cardiovascular: Congestive heart failure, Hypertension Respiratory: Asthma Endocrine/Autoimmune: HyPOthyroidism GI: GERD, Hiatal hernia SU[employer]: None : Incontinence HEENT: Chronic vision loss, Other Psych: Depression, Anxiety Musculoskeletal: Osteoarthritis, Fibromyalgia, Osteoporosis, Gout, Scoliosis, Other Other Past Medical History: Fractured vertebrae, insomnia, radiculopathy, lumbago wtih sciatica, spinal stenosis, diaphragmatic hernia, history of falls with abnormalities with gait and mobility, generalized weakness - Past Surgical History Past Surgical History: Yes General: Appendectomy Ortho: Hip replacement /[employer]: Hysterectomy HEENT: Cataracts - Present Medications Home Medications: Ambulatory Orders Medication Instructions Recorded Confirmed Amlodipine Besylate [Norvasc] 2.5 mg PO DAILY 01/11/24 05/06/24 Montelukast [Singulair] 10 mg PO QPM 01/11/24 05/06/24 Telmisartan 80 mg PO QPM 01/11/24 05/06/24 Aspirin [Nora] 325 mg PO BID 05/06/24 05/06/24 B-Complex with Vitamin C [Vitamin 1 each PO DAILY 05/06/24 05/06/24 B-Complex with Vit C] Bisacodyl Supp [Dulcolax Supp] 10 mg VA DAILY PRN 05/06/24 05/06/24 Calcitonin,Republic,Synthetic 200 unit NS DAILY 05/06/24 05/06/24 [Calcitonin-Republic] Cholecalciferol [Vitamin D3] 1,000 unit PO DAILY 05/06/24 05/06/24 Fluticasone Propionate 2 spray NS BID 05/06/24 05/06/24 Furosemide [Lasix] 20 mg PO DAILY 05/06/24 05/06/24 Ibuprofen [Motrin] 400 mg PO Q6H PRN 05/06/24 05/06/24 Lidocaine [Lidocan V] 1 patch TOP DAILY 05/06/24 05/06/24 Mineral Oil [Mineral Oil Enema] 1 ea RC DAILY PRN 05/06/24 05/06/24 Montelukast Sodium 10 mg PO QPM 05/06/24 05/06/24 Naloxone HCl Nasal [Narcan Nasal] 4 mg NS ONCE PRN 05/06/24 05/06/24 Oxycodone HCl 10 mg PO Q6HR PRN 05/06/24 05/06/24 Potassium Chloride 20 meq PO DAILY 05/06/24 05/06/24 Sennosides/Docusate Sodium [Senna 2 each PO DAILY PRN 05/06/24 05/06/24 Plus 8.6-50 mg Tablet] diphenhydrAMINE [Benadryl] 25 mg PO DAILY 05/06/24 05/06/24 hydrOXYzine pamoate [Hydroxyzine 25 mg PO Q4HR PRN 05/06/24 05/06/24 Pamoate] methocarbamoL [Methocarbamol] 500 mg PO BID 05/06/24 05/06/24 polyethylene glycoL 3350 [Miralax] 17 gm PO DAILY PRN 05/06/24 05/06/24 - Allergies Allergies/Adverse Reactions: Allergies Allergy/AdvReac Type Severity Reaction Status Date / Time gabapentin Allergy Intermediate [place] like Verified 05/06/24 08:41 she was dying. adhesive tape Allergy Unknown Verified 05/06/24 08:41 losartan Allergy Unknown Verified 05/06/24 08:41 pregabalin [From Lyrica] Allergy Unknown Verified 05/06/24 08:41 sertraline Allergy Unknown Verified 05/06/24 08:41 morphine AdvReac Mild Anaphylaxis Verified 05/06/24 08:41 - Social History Does the pt smoke?: Yes Smoking Status: Current every day smoker Does the pt drink ETOH?: Yes Does the pt have substance abuse?: No - Immunizations Immunizations are current?: Yes - POLST Patient has POLST: Yes POLST Status: Full Code PD ED PE NORMAL - Vitals Vital signs reviewed: Yes - General General: Alert and oriented X 3, No acute distress, Well developed/nourished - HEENT HEENT: Atraumatic, PERRL, EOMI, Moist mucous membranes - Neck Neck: Supple, no meningeal sign - Cardiac Cardiac: RRR, No murmur, Strong equal pulses - Respiratory Respiratory: No respiratory distress, Clear bilaterally - Abdomen Abdomen: Soft, Non tender, Non distended - Derm Derm: Normal color, Warm and dry, No rash - Extremities Extremities: No deformity, Other (1+ pitting edema symmetrical bilaterally. No tenderness to palpation noted over left shoulder, chest wall, or back. Range of motion passively does elicit pain in left shoulder, even with small degrees of movement. No swelling or discoloration. No deformity.) - Neuro Neuro: Alert and oriented X 3 - Psych Psych: Normal mood, Normal affect Results - Vitals Vitals: Vital Signs - 24 hr 05/06/24 08:19 Temperature 37 C Heart Rate 59 L Respiratory 16 Rate Blood Pressure 118/101 H O2 Saturation 98 Oxygen O2 Source Room air - EKG (time done) 0825 EKG releavant findings:: EKG personally interpreted by author of this note. Relevant findings are: Rate: Rate (enter#) (55) Rhythm: NSR King: LAD (Borderline) Intervals: Prolonged VA QRS: Normal Ischemia: Normal ST segments Compare to prior EKG: Old EKG unavailable Computer interpretation: Agree with computer - Labs Labs: Laboratory Tests 05/06/24 05/06/24 08:39 08:39 WBC 5.4 RBC 4.29 Hgb 13.0 Hct 39.8 MCV 92.8 MCH 30.3 MCHC 32.7 RDW 12.4 Plt Count 300 MPV 9.7 Neut # (Auto) 2.9 Lymph # (Auto) 1.7 Henry # (Auto) 0.5 Eos # (Auto) 0.3 Baso # (Auto) 0.0 Absolute Nucleated RBC 0.00 Nucleated RBC % 0.0 Sodium 132 L Potassium 4.1 Chloride 98 L Carbon Dioxide 30 Anion Gap 4.0 L BUN 42 H Creatinine 1.5 H Estimated GFR (MDRD) 33 L Glucose 103 Calcium 9.4 Total Bilirubin 0.5 AST 13 ALT 9 L Alkaline Phosphatase 98 Troponin I High Sens 9.8 Total Protein 6.1 L Albumin 3.8 Globulin 2.3 Albumin/Globulin Ratio 1.7 Lipase 20 - Rads (name of study) Left shoulder x-ray series Relevant Findings:: EMP independent interpretation of test (Degenerative changes, possible old fracture of proximal humerus. No acute findings.) PD Medical Decision Making - ED course Complexity details: reviewed old records, reviewed results, re-evaluated patient, considered differential, d/w patient ED course: The patient arrived with a POLST form stating both "comfort care" and she reports full resuscitation including CPR. I discussed this with the patient who did not really have any clarification for this conflicted advanced directive, but she did note that she would be okay with getting blood work done along with EKG and x-ray of her shoulder. Given her age and the lack of tenderness palpation of the shoulder, I did feel it would be reasonable to at least do a set of basic blood work including troponin. This was done and found to be unremarkable including a normal troponin. Given the amount of time that has elapsed since the symptoms began several days ago, as well as the lack of acute findings on EKG, I did feel that a single troponin was sufficient. X-ray was performed of the patient's left shoulder and showed degenerative changes and possibly an old proximal humerus fracture at the neck, but nothing that was acute in appearance. The patient is stable for discharge home. He has been given Toradol and route and a dose of Dilaudid here. We have discussed the need for follow-up with her primary doctor for ongoing pain control needs. Departure - Departure Disposition: 01 Home, Self Care Clinical Impression: Arthritis of left shoulder region Condition: Stable Instructions: ED Degenerative Joint Disease Comments: Your labs, as well as your EKG look good and are reassuring as far as concern over your heart. I think that the pain you are having is coming from shoulder joint itself. You have a lot of arthritis there and it looks like you may have broken the top of your upper arm bone (humerus) in the past. At this point in time, we have given you dose of pain medicine here in the ER and you will need to follow-up with your primary doctor if you continue to have issues with the shoulder bothering you. Please make the next available appointment to be seen. Forms: PCP List
--- NOTE | 2024-05-06 09:56 | XRAY Report ---
PROCEDURE: Shoulder 2+V LT INDICATIONS: L shoulder pain TECHNIQUE: 3 views of the shoulder were acquired. COMPARISON: None. FINDINGS: Bones: No acute fracture or dislocation. Chronic appearing proximal humeral fracture is seen. Modera te acromioclavicular joint osteoarthritic changes are seen. Moderate to severe glenohumeral joint ost eoarthritic changes also noted. No suspicious bony lesions. Visualized ribs appear intact. Soft tissues: No suspicious soft tissue calcifications. The visualized lungs are within normal limi ts. IMPRESSION: 1. Old healed proximal humeral fracture. No acute left shoulder fracture or dislocation. 2. Moderate to severe left shoulder joint osteoarthritis. Reviewed by: Mic Leo MD on 05/06/2024 9:55 AM PDT Approved by: Mic Leo MD on 05/06/2024 9:55 AM PDT Station ID: [id number]
[2024-05-06 10:52] VITALS: BP 115/60; O2SAT 94
== END 2024-05-06 10:57 | disposition home or self-care (01) ==
LOC: EDUNIT# → ED 08:19
DX: M19.012 Primary osteoarthritis, left shoulder (principal); I11.0 Hypertensive heart disease with heart failure; I50.9 Heart failure, unspecified; E03.9 Hypothyroidism, unspecified; F17.200 Nicotine dependence, unspecified, uncomplicated; Z79.899 Other long term (current) drug therapy; Z79.82 Long term (current) use of aspirin
CPT/HCPCS: 36415; 73030; 80053; 83690; 84484; 85025; 93005; 96372; 99284; J1170

== ENCOUNTER 2024-05-06 10:46 | Outpatient (CLI) | payer MEDICARE, MEDICAID | END 2024-05-06 23:59 | LOC: EMS 10:46 | PROVIDERS: ATTEND Emergency Medicine | DX: R41.0 Disorientation, unspecified (principal); M25.512 Pain in left shoulder; F03.90 Unspecified dementia, unspecified severity, without behavioral disturbance, psychotic disturbance, mood disturbance, and anxiety; Z74.01 Bed confinement status; R53.1 Weakness | CPT/HCPCS: A0425; A0428 ==

== ENCOUNTER 2024-05-13 08:00 | Outpatient (CLI) | payer MEDICARE, MEDICAID ==
[2024-05-13 11:36] LABS: ALBUMIN 3.5 g/dL (3.2-5.5); ALBUMIN/GLOBULIN RATIO 1.3 (1.0-2.2); BILIRUBIN,TOTAL 0.5 mg/dL (0.2-1.0); CALCIUM 9.3 mg/dL (8.5-10.3); CREATININE 1.1 mg/dL (0.6-1.3); POTASSIUM 4.1 mmol/L (3.5-4.5); TOTAL PROTEIN 6.2 g/dL (6.4-8.9)
== END 2024-05-13 23:59 | disposition home or self-care (01) ==
LOC: LAB.R 08:00
PROVIDERS: ATTEND Family Medicine
DX: I10 Essential (primary) hypertension (principal)
CPT/HCPCS: 80053

== ENCOUNTER 2024-05-29 08:00 | Outpatient (CLI) | payer MEDICARE, MEDICAID ==
[2024-05-29 20:04] LABS: CREATININE 1.9 mg/dL (0.6-1.3); POTASSIUM 4.4 mmol/L (3.5-4.5)
== END 2024-05-29 23:59 | disposition home or self-care (01) ==
LOC: LAB.R 08:00
PROVIDERS: ATTEND Family Medicine
DX: I10 Essential (primary) hypertension (principal)
CPT/HCPCS: 80048

== ENCOUNTER 2024-06-03 08:00 | Outpatient (CLI) | payer MEDICARE, MEDICAID ==
[2024-06-03 15:27] LABS: BILIRUBIN,URINE NEGATIVE (NEGATIVE); GLUCOSE, URINE (UA) NEGATIVE (NEGATIVE); KETONES,URINE (UA) NEGATIVE (NEGATIVE); LEUKOCYTE ESTERASE, URINE NEGATIVE (NEGATIVE); NITRITE,URINE NEGATIVE (NEGATIVE); OCCULT BLOOD,URINE NEGATIVE (NEGATIVE); PH,URINE 5.5 PH (5.0-7.5); PROTEIN,URINE NEGATIVE (NEGATIVE); UROBILINOGEN,URINE 0.2 (NORMAL) E.U./dL (NORMAL)
[2024-06-03 15:28] LABS: CLARITY,URINE CLEAR (CLEAR)
[2024-06-03 15:37] LABS: BACTERIA,URINE Rare /HPF (None Seen); CASTS, URINE 0-2 Hyaline Casts /LPF; RBC,URINE None Seen /HPF (0-5); SQUAMOUS EPITHELIAL CELL,UR FEW Squamous (<= Few); WBC,URINE 0-3 /HPF (0-5)
== END 2024-06-03 23:59 | disposition home or self-care (01) ==
LOC: LAB.R 08:00
PROVIDERS: ATTEND Family Medicine
DX: R82.90 Unspecified abnormal findings in urine (principal)
CPT/HCPCS: 81001; 87086

== ENCOUNTER 2024-06-11 11:32 | Outpatient (CLI) | payer MEDICARE, MEDICAID ==
[2024-06-11 11:54] LABS: CREATININE,URINE 142.5 mg/dL
[2024-06-11 12:08] LABS: MICROALBUMIN,URINE < 0.7 mg/dL
== END 2024-06-11 11:33 | disposition home or self-care (01) ==
LOC: LAB.R 11:32
PROVIDERS: ATTEND Family Medicine
DX: R94.4 Abnormal results of kidney function studies (principal)
CPT/HCPCS: 82043; 82570

== ENCOUNTER 2024-06-23 00:37 | Outpatient (CLI) | payer MEDICARE, MEDICAID | END 2024-06-23 23:59 | disposition EMS.NT | LOC: EMS 00:37 | DX: Z03.89 Encounter for observation for other suspected diseases and conditions ruled out (principal) ==

== ENCOUNTER 2024-06-23 00:49 | Outpatient (CLI) | payer MEDICARE, MEDICAID | END 2024-06-23 23:59 | disposition EMS.NT | LOC: EMS 00:49 | DX: Z03.89 Encounter for observation for other suspected diseases and conditions ruled out (principal) ==